=== PATIENT | male | born 1950 | race Caucasian/White ===

== ENCOUNTER 2016-10-08 08:00 | Outpatient (RCR) | payer MEDICARE, OTHER ==
[~2016-10-08 08:00] MED LIST: CIPRO 250MG TA250 MG PO; DAILY MULTI VIT1 TAB PO; FISH OIL 1000MG1 CAP PO; GLUCOSAMINE & C1 CA1 PO; NO HOME MEDICATIONS
== END 2016-10-17 10:23 | disposition home or self-care (01) ==
LOC: WSPT 08:00
DX: M50.323 Other cervical disc degeneration at C6-C7 level (principal)
CPT/HCPCS: G0283-GP; G8981-GP; G8982-GP; G8983-GP